=== PATIENT | male | born 2000 | race Caucasian/White ===

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

== ENCOUNTER 2023-04-14 17:49 | Emergency (ER) | payer BC ==
[2023-04-14] MEDS ORDERED: IBUPROFEN 600 MG TABLET (FP) PO ONE ×2 (18:04→18:05)
[2023-04-14 18:06] VITALS: BP 120/68; PULSE 108; RESP 18; TEMP 98.3; BMI 22.5
== END 2023-04-14 18:42 | disposition home or self-care (01) ==
LOC: FER 17:49
DX: S93.432A Sprain of tibiofibular ligament of left ankle, initial encounter (principal); M25.571 Pain in right ankle and joints of right foot; X50.1XXA Overexertion from prolonged static or awkward postures, initial encounter; Y93.67 Activity, basketball
CPT/HCPCS: 73610-TC-RT-FY; 99283-25